=== PATIENT | female | born 1940 ===

== ENCOUNTER 2018-07-31 06:51 | Day surgery (SDC) | payer MEDICARE ==
[2018-07-30 10:05] VITALS: BMI 24.7
[2018-07-31] MEDS ORDERED: Propofol 10 mg/ml Inj (20 ML) ONE ×2 (08:52→09:11)
[2018-07-31] MEDS ORDERED: Lactated Ringer's 500 ML IV ONE (08:56)
--- NOTE | 2018-07-31 08:57 | CP.SDSHP ---
Same Day Surgery H & P - History Proposed Procedure: colonoscopy Pre-Op Diagnosis: Constipation. h/o colon polyps - Previous Medical/Surgical History Cardiac: Hypertension Pulmonary: Emphysema/COPD, Other ([place]) Misc: Other (Gerd, Insomnia, Anxiety, colon polyps) Previous Surgical History: NAVIN, - Allergies Allergies: Allergies No Known Allergies Allergy (Verified 07/31/18 07:27) - Physical Exam Vital Signs: Vital Signs 07/31/18 07/31/18 07:28 07:35 Temperature 97.8 F 97.8 F Pulse Rate 73 73 Respiratory 19 19 Rate Blood Pressure 122/69 122/69 O2 Sat by Pulse 100 100 Oximetry Mental Status: Alert & Oriented x3 Neuro: WNL Heart: WNL Lungs: WNL GI: WNL - Impression Impression: constipation, change in bowels. h/o colon polyps Pt. Evaluated Today:Candidate for Anesthesia & Procedure: Yes - Date & Time Date: 07/31/18 Time: 08:57 Short Stay Discharge - Short Stay Discharge Admitting Diagnosis/Reason for Visit: H/O COLON POLYPS Disposition: HOME/ ROUTINE
[2018-07-31 09:44] VITALS: RESP 16; O2SAT 100
[2018-07-31 10:08] VITALS: TEMP 97.5
[2018-07-31 10:28] VITALS: BP 124/60; PULSE 66
== END 2018-07-31 10:56 | disposition home or self-care (01) ==
LOC: C.ENDO 06:51
PROVIDERS: ATTEND Internal Medicine Gastroenterology
DX: K64.1 Second degree hemorrhoids (principal); Q43.8 Other specified congenital malformations of intestine; R19.4 Change in bowel habit; Z87.19 Personal history of other diseases of the digestive system; I10 Essential (primary) hypertension; G47.33 Obstructive sleep apnea (adult) (pediatric); J43.9 Emphysema, unspecified; K21.9 Gastro-esophageal reflux disease without esophagitis; F41.9 Anxiety disorder, unspecified; G47.00 Insomnia, unspecified
CPT/HCPCS: 45378; J2704; J7120